=== PATIENT | female | born 1940 | race Asian ===

== ENCOUNTER → 2016-10-03 | Outpatient (CLI) | payer MEDICARE, MEDICAID ==
[~2016-10-03] MED LIST: AMLO10TA4 PO; ASPI-515 PO; ATOR10TA PO; BUTA1CAP57 PO; CYCL5TAB PO; OXYB5TAB7 PO; SMZ/TMP; SULF1TAB23 PO
== END | disposition home or self-care (01) ==
LOC: CFH 08:56
PROVIDERS: ATTEND Internal Medicine
DX: J44.9 Chronic obstructive pulmonary disease, unspecified (principal); R91.1 Solitary pulmonary nodule; R91.8 Other nonspecific abnormal finding of lung field
CPT/HCPCS: 71250

== ENCOUNTER → 2017-12-07 | Outpatient (CLI) | payer MEDICARE, MEDICAID | END | disposition home or self-care (01) | LOC: CFH 09:43 | PROVIDERS: ATTEND Internal Medicine | DX: R91.8 Other nonspecific abnormal finding of lung field (principal); D71 Functional disorders of polymorphonuclear neutrophils | CPT/HCPCS: 71250 ==

== ENCOUNTER → 2018-04-09 | Outpatient (CLI) | payer MEDICARE, MEDICAID | END | disposition home or self-care (01) | LOC: CFH 08:36 | PROVIDERS: ATTEND Internal Medicine Nephrology | DX: N18.1 Chronic kidney disease, stage 1 (principal) | CPT/HCPCS: 76770 ==

== ENCOUNTER 2019-10-25 19:28 | Emergency (ER) | payer MEDICARE, MEDICAID ==
[~2019-10-25] VITALS: Ht 149.9 cm; Wt 48.6 kg
[~2019-10-25 19:28] MED LIST changes: +OXYB5TAB10 PO; -OXYB5TAB7 PO
[2019-10-25] MEDS ORDERED: MAALOX/HYOSCYAMINE/LIDOCAINE 45 ML BTL ONE (20:16)
[2019-10-25 20:17] LABS: BASOPHILS # (AUTO) 0.01 x10^3/uL (0-0.1); BASOPHILS % (AUTO) 0 % (0-1); EOSINOPHILS % (AUTO) 0 % (1-7); LYMPHOCYTES # (AUTO) 1.57 x10^3/uL (1-3.4); LYMPHOCYTES % (AUTO) 34 % (22-44); MD NO; MEAN CORPUSCULAR HEMOGLOBIN 31.4 pg (27.0-34.8); MEAN CORPUSCULAR HGB CONC 33.3 g/dL (32.4-35.8); MEAN CORPUSCULAR VOLUME 94.1 fL (80-100); MEAN PLATELET VOLUME 7.7 fL (7.4-10.4); MONOCYTES # (AUTO) 0.52 x10^3/uL (0.2-0.8); MONOCYTES % (AUTO) 11 % (2-9); NEUTROPHILS # (AUTO) 2.57 x10^3/uL (1.8-6.8); NEUTROPHILS % (AUTO) 55 % (42-75); PLATELET COUNT 188 x10^3/uL (130-400); RED CELL DISTRIBUTION WIDTH 11.9 % (9.6-15.2)
[2019-10-25 20:21] LABS: MICROSCOPIC INDICATED
[2019-10-25 20:27] LABS: ALANINE AMINOTRANSFERASE 32 U/L (12-78); ALBUMIN 3.7 g/dL (3.4-5.0); ANION GAP 11 mmol/L (5-15); CALCIUM 8.7 mg/dL (8.5-10.1); CHLORIDE 102 mmol/L (98-107); CREATININE 0.91 mg/dL (0.55-1.02)
[2019-10-25] MEDS ORDERED: MAALOX/HYOSCYAMINE/LIDOCAINE 45 ML BTL PO ONE (20:30)
[2019-10-25 20:31] LABS: ALKALINE PHOSPHATASE 53 U/L (45-117); BILIRUBIN,TOTAL 0.5 mg/dL (0.2-1.0); TOTAL PROTEIN 6.9 g/dL (6.4-8.2); TROPONIN I < 0.015 ng/mL (0.000-0.045)
--- NOTE | 2019-10-25 20:31 | NUR ---
PT HAS C/O UPPER ABD PAIN IN [facility] [place] FOR THE LAST MONTH, PT STATED "SHE HAS A UPPER GI APPOINTMENT FOR SUNDAY WITH GI DR" PT RESTING IN BED WITH FAMILY AT PT BED SIDE.
[2019-10-25 21:02] VITALS: BP 124/74
== END 2019-10-25 21:04 | disposition home or self-care (01) ==
LOC: ED 20:45
DX: K29.50 Unspecified chronic gastritis without bleeding (principal); N30.00 Acute cystitis without hematuria; K59.00 Constipation, unspecified; I10 Essential (primary) hypertension; Z85.3 Personal history of malignant neoplasm of breast; Z87.11 Personal history of peptic ulcer disease
CPT/HCPCS: 36415; 74022; 80053; 81001; 83690; 84484; 85025; 87077; 87086; 87186; 93005; 99285

== ENCOUNTER → 2019-10-28 | Outpatient (CLI) | payer MEDICARE, MEDICAID | END | disposition home or self-care (01) | LOC: RAD 08:11 | PROVIDERS: ATTEND Student in an Organized Health Care Education/Training Program | DX: Z01.818 Encounter for other preprocedural examination (principal); R10.32 Left lower quadrant pain | CPT/HCPCS: 74240 ==

== ENCOUNTER → 2020-01-08 | Outpatient (CLI) | payer MEDICARE, MEDICAID | END | disposition home or self-care (01) | LOC: CFH 08:48 | PROVIDERS: ATTEND Registered Nurse | DX: R91.8 Other nonspecific abnormal finding of lung field (principal); J98.4 Other disorders of lung | CPT/HCPCS: 71250 ==

== ENCOUNTER → 2020-06-29 | Outpatient (CLI) | payer MEDICARE, MEDICAID ==
[~2020-06-29] MED LIST changes: -ASPI-515 PO; +ASPI-963 PO
== END | disposition home or self-care (01) ==
LOC: CFH 08:21
PROVIDERS: ATTEND Nurse Practitioner Family
DX: Z12.31 Encounter for screening mammogram for malignant neoplasm of breast (principal)
CPT/HCPCS: 77067

== ENCOUNTER → 2020-08-13 | Outpatient (CLI) | payer MEDICARE, MEDICAID | END | disposition home or self-care (01) | LOC: RAD 16:12 | PROVIDERS: ATTEND Nurse Practitioner Family | DX: R31.0 Gross hematuria (principal); R30.0 Dysuria; R39.89 Other symptoms and signs involving the genitourinary system | CPT/HCPCS: 76770 ==